=== PATIENT | male | born 2000 | race Caucasian/White ===

== ENCOUNTER 2025-04-22 11:56 | Inpatient (IN) | payer OTHER ==
[~2025-04-22] VITALS: Ht 175.3 cm; Wt 98.0 kg
[2025-04-22 15:36] VITALS: BP 154/75; PULSE 89; RESP 18; TEMP 97.5; O2SAT 99
[2025-04-22 20:00] VITALS: BP 153/88; PULSE 101; RESP 18; TEMP 99.3; O2SAT 100
[2025-04-22] MEDS: SENNOSIDES 8.6 MG TABLET PO SCH (20:55)
[2025-04-22] MEDS: CELECOXIB 100 MG CAPSULE PO SCH (20:55)
[2025-04-22] MEDS: GABAPENTIN 300 MG CAPSULE PO SCH (20:55)
[2025-04-22] MEDS: ETHYL ALCOHOL 62% ANTISEPTIC NASAL SANITIZER 0.6 ML AMPUL NASAL SCH (20:55)
[2025-04-22] MEDS: ENOXAPARIN SODIUM 40 MG/0.4 ML PF SYRINGE SQ SCH (21:00)
[2025-04-22] MEDS ORDERED: DOCUSATE SODIUM 100 MG CAPSULE PO SCH (21:00)
[2025-04-22 22:38] VITALS: O2SAT 100
[2025-04-22] MEDS: OxyCODONE HCL 5 MG IR TABLET PO PRN (23:36)
[2025-04-23 03:00] VITALS: BP 149/75; PULSE 72; RESP 20; TEMP 97.3; O2SAT 99
[2025-04-23 07:28] LABS: PLATELET COUNT (AUTO) 435 K/uL (150-450); RED BLOOD CELL COUNT(AUTO) 2.72 MIL/uL (4.50-5.90); RED CELL DISTRIBUTION WIDTH 13.2 % (11.5-14.5); WHITE BLOOD COUNT (AUTO) 11.2 K/uL (4.5-11.0)
[2025-04-23 07:41] LABS: ASPARTATE AMINOTRANSFERASE 38 U/L (15-37); CALCIUM, TOTAL 8.7 mg/dL (8.8-10.5); CREATININE 0.81 mg/dL (0.60-1.30); GLOMERULAR FILTR. RATE CALC > 60 mL/min (>60); GLUCOSE,RANDOM 101 mg/dL (70-110); SODIUM SERUM 134 mmol/L (136-145); TOTAL PROTEIN, SERUM 6.8 g/dL (6.4-8.2); UREA NITROGEN, BLOOD 18 mg/dL (7-18)
[2025-04-23 08:04] VITALS: BP 158/85; PULSE 86; RESP 19; TEMP 98.4; O2SAT 100
[2025-04-23] MEDS: DULoxetine HCL 60 MG CAPSULE PO SCH (08:19)
[2025-04-23] MEDS: POLYETHYLENE GLYCOL 3350 17 GM PACKET PO SCH (08:20)
[2025-04-23] MEDS: LIDOCAINE 5% TRANSDERMAL PATCH TD SCH (08:26)
[2025-04-23 09:19] VITALS: BP 146/93
[2025-04-23] MEDS: OxyCODONE HCL 10 MG IR TABLET PO PRN (11:00)
[2025-04-23] MEDS: GABAPENTIN 300 MG CAPSULE PO SCH (15:55)
[2025-04-23 20:31] VITALS: BP 128/61; PULSE 91; RESP 18; TEMP 97.9; O2SAT 98
[2025-04-23] MEDS: -LIDODERM PATCH NOTE- MISC SCH (20:31)
[2025-04-24 01:20] VITALS: O2SAT 98
[2025-04-24 05:02] VITALS: BP 130/72; PULSE 86; RESP 19; O2SAT 98
[2025-04-24 08:16] VITALS: BP 148/80; PULSE 95; RESP 18; TEMP 98.2; O2SAT 98
[2025-04-24 12:35] VITALS: BP 136/84; PULSE 102
[2025-04-24 12:53] LABS: PLATELET COUNT (AUTO) 536 K/uL (150-450); RED BLOOD CELL COUNT(AUTO) 2.90 MIL/uL (4.50-5.90); RED CELL DISTRIBUTION WIDTH 13.6 % (11.5-14.5); WHITE BLOOD COUNT (AUTO) 12.2 K/uL (4.5-11.0)
[2025-04-24 12:57] LABS: CALCIUM, TOTAL 8.6 mg/dL (8.8-10.5); CREATININE 0.94 mg/dL (0.60-1.30); GLOMERULAR FILTR. RATE CALC > 60 mL/min (>60); GLUCOSE,RANDOM 112 mg/dL (70-110); SODIUM SERUM 131 mmol/L (136-145); UREA NITROGEN, BLOOD 20 mg/dL (7-18)
[2025-04-24 19:43] LABS: APPEARANCE,URINE CLEAR (CLEAR); GLUCOSE, URINE (UA) NEGATIVE (NEGATIVE); LEUKOCYTE ESTERASE ,URINE NEGATIVE (NEGATIVE); NITRATE,URINE NEGATIVE (NEGATIVE); OCCULT BLOOD,URINE NEGATIVE (NEGATIVE); SPECIFIC GRAVITIY, URINE 1.011 (1.003-1.030)
[2025-04-24 19:46] LABS: SQUAMOUS EPITHELIAL CELL,UR Few /LPF (None Seen)
[2025-04-24 20:08] VITALS: BP 135/64; PULSE 103; RESP 18; TEMP 99.1; O2SAT 98
[2025-04-24 20:13] VITALS: O2SAT 98
[2025-04-25 05:41] VITALS: TEMP 97.7
[2025-04-25 08:00] VITALS: BP 143/70; PULSE 86; RESP 18; TEMP 98.1; O2SAT 99
[2025-04-25] MEDS: ACETAMINOPHEN 325 MG TABLET PO PRN (08:28)
[2025-04-25] MEDS: CEPHALEXIN MONOHYDRATE 500 MG CAPSULE PO SCH (12:34)
[2025-04-25 20:40] VITALS: O2SAT 98
[2025-04-26 08:30] VITALS: O2SAT 100
[2025-04-26 10:31] LABS: PLATELET COUNT (AUTO) 504 K/uL (150-450); RED BLOOD CELL COUNT(AUTO) 2.84 MIL/uL (4.50-5.90); RED CELL DISTRIBUTION WIDTH 13.7 % (11.5-14.5); WHITE BLOOD COUNT (AUTO) 8.5 K/uL (4.5-11.0)
[2025-04-26 20:00] VITALS: BP 145/72; PULSE 96; RESP 20; TEMP 99.5; O2SAT 100
[2025-04-26 22:49] VITALS: TEMP 98.3
[2025-04-27 07:54] VITALS: BP 126/74; PULSE 79; RESP 18; TEMP 98.4; O2SAT 100
[2025-04-27] MEDS: GABAPENTIN 300 MG CAPSULE PO SCH ×2 (16:12→20:44)
[2025-04-27 20:55] VITALS: BP 139/72; PULSE 84; RESP 18; TEMP 98.6; O2SAT 100
[2025-04-28 08:00] VITALS: BP 132/82; PULSE 87; RESP 18; TEMP 98.3; O2SAT 98
[2025-04-28] MEDS: GABAPENTIN 300 MG CAPSULE PO SCH (15:36)
[2025-04-28 21:55] VITALS: BP 133/66; PULSE 92; RESP 18; TEMP 98.4; O2SAT 100
[2025-04-28 22:49] VITALS: O2SAT 100
[2025-04-29 07:00] VITALS: BP 121/70; PULSE 74; RESP 19; O2SAT 99
[2025-04-29 08:00] VITALS: BP 126/62; PULSE 83; RESP 20; TEMP 98.1; O2SAT 100
== END 2025-04-29 14:00 | disposition short-term general hospital (02) | DRG 560 ==
LOC: 2WR 15:55 → UNDOADMIN 15:55
PROVIDERS: ADMIT Physical Medicine & Rehabilitation; ATTEND Physical Medicine & Rehabilitation
DX: S82.291D Other fracture of shaft of right tibia, subsequent encounter for closed fracture with routine healing (principal); E87.1 Hypo-osmolality and hyponatremia; D64.9 Anemia, unspecified; S82.491D Other fracture of shaft of right fibula, subsequent encounter for closed fracture with routine healing; S42.392D Other fracture of shaft of left humerus, subsequent encounter for fracture with routine healing; S52.91XD Unspecified fracture of right forearm, subsequent encounter for closed fracture with routine healing; V29.888D Rider (driver) (passenger) of other motorcycle injured in other specified transport accidents, subsequent encounter; E88.09 Other disorders of plasma-protein metabolism, not elsewhere classified; Z74.09 Other reduced mobility; D72.829 Elevated white blood cell count, unspecified; F43.10 Post-traumatic stress disorder, unspecified; F51.04 Psychophysiologic insomnia; G89.29 Other chronic pain; M54.50 Low back pain, unspecified; R26.89 Other abnormalities of gait and mobility; R74.8 Abnormal levels of other serum enzymes; R33.9 Retention of urine, unspecified; R03.0 Elevated blood-pressure reading, without diagnosis of hypertension; L53.9 Erythematous condition, unspecified; G47.00 Insomnia, unspecified; F41.9 Anxiety disorder, unspecified; Z82.49 Family history of ischemic heart disease and other diseases of the circulatory system; Z83.3 Family history of diabetes mellitus
CPT/HCPCS: 80048; 80053; 81001; 85025; 86140; 87081; 93970; 97110; 97112; 97116; 97140; 97163; 97167; 97530; 97535; 99366; J1650